=== PATIENT | female | born 1990 | race Caucasian/White ===

== ENCOUNTER 2023-04-08 17:37 | Inpatient (IN) | payer BC, OTHER ==
[2023-04-08 18:30] LABS: Appearance,Urine Clear (Clear); Bilirubin,Urine Negative (Negative); Blood,Urine Negative (Negative); Color,Urine Colorless; Glucose,Urine (UA) Negative (Negative); Ketones,Urine Negative (Negative); Leukocyte Esterase,Urine Negative (Negative); Nitrite,Urine Negative (Negative); PH, Urine 5.5 (5.0-8.0); Protein,Urine Negative (Negative); Specific Gravity,Urine 1.005 (1.001-1.035); Urobilinogen,Urine <2.0 mg/dL (<2.0)
[2023-04-08 20:10] LABS: Basophils % (A) 0 %; Eosinophils # (A) 0.1 k/uL (0-0.7); Eosinophils % (A) 1 %; HCT 39.7 % (34.0-46.0); HGB 13.1 gm/dL (11.4-16.0); Lymphocytes # (A) 2.2 k/uL (1.0-4.8); Lymphocytes % (A) 20 %; MCH 30.8 pg (25.0-35.0); MCHC 33.1 g/dL (31.0-37.0); MCV 93.1 fL (80.0-100.0); Mean Platelet Volume 7.6; Monocytes # (A) 0.5 k/uL (0-1.0); Monocytes % (A) 5 %; Neutrophils # (A) 7.8 k/uL (1.3-7.7); Neutrophils % (A) 73 %; Platelet Count 212 k/uL (150-450); RBC 4.26 m/uL (3.80-5.40); RDW 12.4 % (11.5-15.5); WBC 10.7 k/uL (3.8-10.6)
[2023-04-08 20:22] LABS: ALT 34 U/L (4-34); AST 41 U/L (14-36); African American GFR (CKD) >90 (>60 ml/min/1.73 sqM); Albumin 4.4 g/dL (3.5-5.0); Alkaline Phosphatase 120 U/L (38-126); Anion Gap 12 mmol/L; Blood Urea Nitrogen 10 mg/dL (7-17); Calcium 8.7 mg/dL (8.4-10.2); Carbon Dioxide 21 mmol/L (22-30); Chloride 105 mmol/L (98-107); Glucose 105 mg/dL (74-99); Non-African American GFR(CKD) >90 (>60 ml/min/1.73 sqM); Potassium 3.7 mmol/L (3.5-5.1); Sodium 138 mmol/L (137-145); Total Bilirubin 0.4 mg/dL (0.2-1.3); Total Protein 7.2 g/dL (6.3-8.2)
--- NOTE | 2023-04-08 21:05 | ED ---
General Adult HPI - General Chief complaint: Abdominal Pain Stated complaint: LRQ pain sent from urgent care Time Seen by Provider: 04/08/23 19:53 Source: patient Mode of arrival: ambulatory Limitations: no limitations - History of Present Illness Initial comments: Dictation was produced using [employer] dictation software. please excuse any grammatical, word or spelling errors. Chief Complaint: 32-year-old female presents emergency Department right lower quadrant abdominal pain History of Present Illness: Patient 32-year-old female presents to emergency room for right lower quadrant abdominal pain. Patient was told to come to the emergency department by primary care doctor. She's been having this pain for 2 days. States that it's worse in the right lower quadrant. Associated with nausea vomiting. No diarrhea. No fever. Patient has a history of abdominal surgery. The ROS documented in this emergency department record has been reviewed and confirmed by me. Those systems with pertinent positive or negative responses have been documented in the HPI. All other systems are other negative and/or noncontributory. - Related Data Home Medications Medication Instructions Recorded Confirmed Amitriptyline HCl [Elavil] 10 mg PO HS 04/08/23 04/08/23 Allergies Allergy/AdvReac Type Severity Reaction Status Date / Time No Known Allergies Allergy Verified 04/08/23 17:56 Review of Systems ROS Statement: Those systems with pertinent positive or pertinent negative responses have been documented in the HPI. ROS Other: All systems not noted in ROS Statement are negative. Past Medical History Past Medical History: No Reported History History of Any Multi-Drug Resistant Organisms: None Reported Past Surgical History: No Surgical Hx Reported Past Psychological History: Depression Smoking Status: Never smoker Past Alcohol Use History: None Reported Past Drug Use History: None Reported General Exam - General Exam Comments Initial Comments: PHYSICAL EXAM: General Impression: Alert and oriented x3, not in acute distress HEENT: Normocephalic atraumatic, extra-ocular movements intact, pupils equal and reactive to light bilaterally, mucous membranes moist. Cardiovascular: Heart regular rate and rhythm Chest: Able to complete full sentences, no retractions, no tachypnea Abdomen: abdomen soft, pain at McBurney's point, positive rebound, pain in the right side with palpation to the left, non-distended, no organomegaly Musculoskeletal: Pulses present and equal in all extremities, no peripheral edema Motor: no focal deficits noted Neurological: CN II-XII grossly intact, no focal motor or sensory deficits noted Skin: Intact with no visualized rashes Psych: Normal affect and mood Limitations: no limitations Course Vital Signs 04/08/23 17:54 Temperature 98 F Pulse Rate 94 Respiratory 16 Rate Blood Pressure 119/69 O2 Sat by Pulse 97 Oximetry Medical Decision Making - Medical Decision Making Was pt. sent in by a medical professional or institution (, ELLIE, DRUG AND ALCOHOL COUNSELLOR, urgent care, hospital, or [facility]...) When possible be specific @ -No Did you speak to anyone other than the patient for history (EMS, parent, family, police, friend...)? What history was obtained from this source @ -No Did you review nursing and triage notes (agree or disagree)? Why? @ -I reviewed and agree with nursing and triage notes Were old charts reviewed (outside hosp., previous admission, EMS record, old EKG, old radiological studies, urgent care reports/EKG's, [facility] records)? Report findings @ -No old charts were reviewed Differential Diagnosis (chest pain, altered mental status, abdominal pain women, abdominal pain men, vaginal bleeding, musculoskeletal, weakness, fever, dys pnea, syncope, headache, dizziness, GI bleed, back pain, seizure, CVA, palpatations, mental health)? @ -Differential abdominal pain women EKG interpreted by me (3pts min.). @ -None done X-rays interpreted by me (1pt min.). @ -None done CT interpreted by me (1pt min.). @ -Inflammation in the right lower quadrant concerning for acute appendicitis versus Cecitis U/S interpreted by me (1pt. min.). @ -None done What testing was considered but not performed or refused? (CT, X-rays, U/S, labs)? Why? @ -None What meds were considered but not given or refused? Why? @ -None Did you discuss the management of the patient with other professionals (professionals i.e. ELLIE Moore, DRUG AND ALCOHOL COUNSELLOR, lab, RT, psych nurse, high school social studies teacher, certified medication technician, teacher, air defense artillery officer, correctional case manager)? Give summary @Discussed with Dr. Zavala for admission. He request the patient be started antibiotics with no immediate plans for surgery he will assess patient in the morning tomorrow Was smoking cessation discussed for >3mins.? @ -No Was critical care preformed (if so, how long)? @ -No Were there social determinants of health that impacted care today? How? (Homelessness, low income, unemployed, alcoholism, drug addiction, transportation, low edu. Level, literacy, decrease access to med. care, nursing home, rehab)? @ -No Was there de-escalation of care discussed even if they declined (Discuss DNR or withdrawal of care, Hospice)? DNR status @ -No What co-morbidities impacted this encounter? (DM, HTN, Smoking, COPD, CAD, Cancer, CVA, ARF, Chemo, Hep., AIDS, mental health diagnosis, sleep apnea, morbid obesity)? @ -None Was patient admitted / discharged? Hospital course, mention meds given and route, prescriptions, significant lab abnormalities, going to OR and other pertinent info. @ -32-year-old female presents to the emergency department for right lower quadrant pain for 2 days. Vital signs stable. No significant leukocytosis. Labs unremarkable. CT concerning for acute appendicitis. Started antibiotics will be admitted to general surgery. Undiagnosed new problem with uncertain prognosis? @ -No Drug Therapy requiring intensive monitoring for toxicity (Heparin, Nitro, Insulin, Cardizem)? @ -No Were any procedures done? @ -No Diagnosis/symptom? Acute, or Chronic, or Acute on Chronic? Uncomplicated (without systemic symptoms) or Complicated (systemic symptoms)? @ -Acute appendicitis Side effects of treatment? @ -No Exacerbation, Progression, or Severe Exacerbation? @ -No Poses a threat to life or bodily function? How? (Chest pain, [place], [place], pneumonia, PE, COPD, DKA, ARF, appy, cholecystitis, CVA, Diverticulitis, Homicidal, Suicidal, threat to staff... and all critical care pts) @ -yes - Lab Data Result diagrams: 04/08/23 20:54 04/08/23 20:54 Lab Results 04/08/23 04/08/23 04/08/23 Range/Units 18:00 18:00 19:57 WBC 10.7 H (3.8-10.6) k/uL RBC 4.26 (3.80-5.40) m/uL Hgb 13.1 (11.4-16.0) gm/dL Hct 39.7 (34.0-46.0) % MCV 93.1 (80.0-100.0) fL MCH 30.8 (25.0-35.0) pg MCHC 33.1 (31.0-37.0) g/dL RDW 12.4 (11.5-15.5) % Plt Count 212 (150-450) k/uL MPV 7.6 Neutrophils % 73 % Lymphocytes % 20 % Monocytes % 5 % Eosinophils % 1 % Basophils % 0 % Neutrophils # 7.8 H (1.3-7.7) k/uL Lymphocytes # 2.2 (1.0-4.8) k/uL Monocytes # 0.5 (0-1.0) k/uL Eosinophils # 0.1 (0-0.7) k/uL Basophils # 0.0 (0-0.2) k/uL PT (9.0-12.0) sec INR (<1.2) APTT (22.0-30.0) sec Sodium (137-145) mmol/L Potassium (3.5-5.1) mmol/L Chloride (98-107) mmol/L Carbon Dioxide (22-30) mmol/L Anion Gap mmol/L BUN (7-17) mg/dL Creatinine (0.52-1.04) mg/dL Est GFR (CKD-EPI)AfAm (>60 ml/min/1.73 sqM) Est GFR (CKD-EPI)NonAf (>60 ml/min/1.73 sqM) Glucose (74-99) mg/dL Calcium (8.4-10.2) mg/dL Total Bilirubin (0.2-1.3) mg/dL AST (14-36) U/L ALT (4-34) U/L Alkaline Phosphatase (38-126) U/L Total Protein (6.3-8.2) g/dL Albumin (3.5-5.0) g/dL Urine Color Colorless Urine Appearance Clear (Clear) Urine pH 5.5 (5.0-8.0) Ur Specific [place] 1.005 (1.001-1.035) Urine Protein Negative (Negative) Urine Glucose (UA) Negative (Negative) Urine Ketones Negative (Negative) Urine Blood Negative (Negative) Urine Nitrite Negative (Negative) Urine Bilirubin Negative (Negative) Urine Urobilinogen <2.0 (<2.0) mg/dL Ur Leukocyte Esterase Negative (Negative) Urine HCG, Qual Not Detected (Not Detectd) 04/08/23 04/08/23 04/08/23 Range/Units 19:57 20:54 20:54 WBC 10.1 (3.8-10.6) k/uL RBC 4.09 (3.80-5.40) m/uL Hgb 12.7 (11.4-16.0) gm/dL Hct 38.1 (34.0-46.0) % MCV 93.3 (80.0-100.0) fL MCH 31.2 (25.0-35.0) pg MCHC 33.4 (31.0-37.0) g/dL RDW 12.4 (11.5-15.5) % Plt Count 209 (150-450) k/uL MPV 7.5 Neutrophils % 72 % Lymphocytes % 21 % Monocytes % 5 % Eosinophils % 1 % Basophils % 0 % Neutrophils # 7.3 (1.3-7.7) k/uL Lymphocytes # 2.1 (1.0-4.8) k/uL Monocytes # 0.5 (0-1.0) k/uL Eosinophils # 0.1 (0-0.7) k/uL Basophils # 0.0 (0-0.2) k/uL PT 9.6 (9.0-12.0) sec INR 0.9 (<1.2) APTT 24.4 (22.0-30.0) sec Sodium 138 (137-145) mmol/L Potassium 3.7 (3.5-5.1) mmol/L Chloride 105 (98-107) mmol/L Carbon Dioxide 21 L (22-30) mmol/L Anion Gap 12 mmol/L BUN 10 (7-17) mg/dL Creatinine 0.46 L (0.52-1.04) mg/dL Est GFR (CKD-EPI)AfAm >90 (>60 ml/min/1.73 sqM) Est GFR (CKD-EPI)NonAf >90 (>60 ml/min/1.73 sqM) Glucose 105 H (74-99) mg/dL Calcium 8.7 (8.4-10.2) mg/dL Total Bilirubin 0.4 (0.2-1.3) mg/dL AST 41 H (14-36) U/L ALT 34 (4-34) U/L Alkaline Phosphatase 120 (38-126) U/L Total Protein 7.2 (6.3-8.2) g/dL Albumin 4.4 (3.5-5.0) g/dL Urine Color Urine Appearance (Clear) Urine pH (5.0-8.0) Ur Specific [place] (1.001-1.035) Urine Protein (Negative) Urine Glucose (UA) (Negative) Urine Ketones (Negative) Urine Blood (Negative) Urine Nitrite (Negative) Urine Bilirubin (Negative) Urine Urobilinogen (<2.0) mg/dL Ur Leukocyte Esterase (Negative) Urine HCG, Qual (Not Detectd) 04/08/23 Range/Units 20:54 WBC (3.8-10.6) k/uL RBC (3.80-5.40) m/uL Hgb (11.4-16.0) gm/dL Hct (34.0-46.0) % MCV (80.0-100.0) fL MCH (25.0-35.0) pg MCHC (31.0-37.0) g/dL RDW (11.5-15.5) % Plt Count (150-450) k/uL MPV Neutrophils % % Lymphocytes % % Monocytes % % Eosinophils % % Basophils % % Neutrophils # (1.3-7.7) k/uL Lymphocytes # (1.0-4.8) k/uL Monocytes # (0-1.0) k/uL Eosinophils # (0-0.7) k/uL Basophils # (0-0.2) k/uL PT (9.0-12.0) sec INR (<1.2) APTT (22.0-30.0) sec Sodium 139 (137-145) mmol/L Potassium 3.5 (3.5-5.1) mmol/L Chloride 104 (98-107) mmol/L Carbon Dioxide 23 (22-30) mmol/L Anion Gap 12 mmol/L BUN 9 (7-17) mg/dL Creatinine 0.52 (0.52-1.04) mg/dL Est GFR (CKD-EPI)AfAm >90 (>60 ml/min/1.73 sqM) Est GFR (CKD-EPI)NonAf >90 (>60 ml/min/1.73 sqM) Glucose 96 (74-99) mg/dL Calcium 8.8 (8.4-10.2) mg/dL Total Bilirubin (0.2-1.3) mg/dL AST (14-36) U/L ALT (4-34) U/L Alkaline Phosphatase (38-126) U/L Total Protein (6.3-8.2) g/dL Albumin (3.5-5.0) g/dL Urine Color Urine Appearance (Clear) Urine pH (5.0-8.0) Ur Specific [place] (1.001-1.035) Urine Protein (Negative) Urine Glucose (UA) (Negative) Urine Ketones (Negative) Urine Blood (Negative) Urine Nitrite (Negative) Urine Bilirubin (Negative) Urine Urobilinogen (<2.0) mg/dL Ur Leukocyte Esterase (Negative) Urine HCG, Qual (Not Detectd) Disposition Clinical Impression: Appendicitis Disposition: [facility] Referrals: Vini Fall MD [Primary Care Provider] - 1-2 days Decision Time: 22:26
--- NOTE | 2023-04-08 21:37 | CT ---
EXAMINATION TYPE: CT abdomen pelvis w con DATE OF EXAM: 04/08/2023 COMPARISON: NONE HISTORY: 32-year-old female RLQ abdominal pain TECHNIQUE: Contiguous axial scanning of the abdomen and pelvis following administration of 100 ml Iso mario 300 IV contrast. Delayed images through the kidneys and coronal/sagittal reconstructions perform ed. CT DLP: 714.7 mGycm Automated exposure control for dose reduction was used. FINDINGS: Heart normal size without pericardial effusion. Lung bases clear without pleural effusion. No focal liver lesion or biliary ductal dilatation. Portal venous system is patent. Gallbladder, adrenal glands, kidneys, spleen, and pancreas within normal limits. Prominent fluid-filled small bowel loops throughout the abdomen and pelvis. There is moderate to severe cecal wall thickening and contiguous thickening of the appendix up to 1.1 cm. Suspected reactive right lower quadrant mesenteric lymphadenopathy measuring up to 1.5 cm. No dilated small bowel or free air. Bladder is urine distended. Uterus is retroverted. Both ovaries are visualized. There is a 1.8 cm dom inant follicle or functional cyst in the left ovary. Also moderate cul-de-sac free fluid likely physi ologic. No pelvic lymphadenopathy. Bones: Osseous destructive process. IMPRESSION: 1. MODERATE TO SEVERE COLITIS CENTERED AT THE CECUM WITH CONTIGUOUS INFLAMMATION EXTENDING INTO THE A PPENDIX. UNCLEAR IF THIS REPRESENTS A PRIMARY INFECTIOUS OR INFLAMMATORY CECITIS WITH CONTIGUOUS INFL AMMATION OF THE APPENDIX VERSUS ACUTE APPENDICITIS WITH INFLAMMATION EXTENDING TO INVOLVE THE CECUM. THE FORMER IS SOMEWHAT FAVORED. 2. ADDITIONAL SCATTERED FLUID-FILLED SMALL BOWEL LOOPS MID TO LOWER ABDOMEN AND PELVIS COULD REPRESEN T A SECONDARY ILEUS OR CONCURRENT ENTERITIS. 3. SOME REACTIVE RIGHT LOWER QUADRANT MESENTERIC LYMPHADENOPATHY MEASURING UP TO 1.5 CM. 4. MILD TO MODERATE CUL-DE-SAC FREE FLUID LIKELY PHYSIOLOGIC. IT COULD ALSO BE REACTIVE TO THE ABOVE INFLAMMATION. NO ABSCESS OR FREE AIR.
[2023-04-08 21:41] LABS: Basophils % (A) 0 %; Eosinophils # (A) 0.1 k/uL (0-0.7); Eosinophils % (A) 1 %; HCT 38.1 % (34.0-46.0); HGB 12.7 gm/dL (11.4-16.0); Lymphocytes # (A) 2.1 k/uL (1.0-4.8); Lymphocytes % (A) 21 %; MCH 31.2 pg (25.0-35.0); MCHC 33.4 g/dL (31.0-37.0); MCV 93.3 fL (80.0-100.0); Mean Platelet Volume 7.5; Monocytes # (A) 0.5 k/uL (0-1.0); Monocytes % (A) 5 %; Neutrophils # (A) 7.3 k/uL (1.3-7.7); Neutrophils % (A) 72 %; Platelet Count 209 k/uL (150-450); RBC 4.09 m/uL (3.80-5.40); RDW 12.4 % (11.5-15.5); WBC 10.1 k/uL (3.8-10.6)
[2023-04-08 21:58] LABS: INR 0.9 (<1.2); Partial Thromboplastin Time 24.4 sec (22.0-30.0); Prothrombin Time 9.6 sec (9.0-12.0)
[2023-04-08 22:15] LABS: African American GFR (CKD) >90 (>60 ml/min/1.73 sqM); Anion Gap 12 mmol/L; Blood Urea Nitrogen 9 mg/dL (7-17); Calcium 8.8 mg/dL (8.4-10.2); Carbon Dioxide 23 mmol/L (22-30); Chloride 104 mmol/L (98-107); Glucose 96 mg/dL (74-99); Non-African American GFR(CKD) >90 (>60 ml/min/1.73 sqM); Potassium 3.5 mmol/L (3.5-5.1); Sodium 139 mmol/L (137-145)
[2023-04-08] MEDS ORDERED: ACETAMINOPHEN TAB 325 MG TAB PO PRN (22:30)
[2023-04-08] MEDS ORDERED: ONDANSETRON 4 MG/2 ML VIAL IVP PRN (22:30)
[2023-04-08] MEDS ORDERED: NALOXONE 0.4 MG/ML 1 ML VIAL IV PRN (22:30)
[2023-04-08] MEDS: MORPHINE SULFATE 4 MG/ML SYRINGE IV PRN (23:00)
[2023-04-09] MEDS: PIPERACILLIN-TAZOBACTAM 3.375 GM in SODIUM CHLORIDE 0.9% 100 ML IVPB SCH ×4 (00:34→23:29)
[2023-04-09] MEDS: SODIUM CHLORIDE 0.9% 1,000 ML IV SCH ×4 (00:34→21:16)
[2023-04-09] MEDS: MORPHINE SULFATE 4 MG/ML SYRINGE IV PRN ×3 (04:21→19:49)
--- NOTE | 2023-04-09 16:20 | P.GSHP ---
History of Present Illness H&P Date: 04/09/23 CHIEF COMPLAINT: Abdominal pain HISTORY OF PRESENT ILLNESS: This is a 32-year-old female who presented to the hospital with complaints of right lower quadrant abdominal pain. Pain started suddenly on Saturday morning. She reports that the pain moves the right lower quadrant up to the umbilicus. She was initially rating pain 10 out of 10. With pain medication pain comes down to 5 out of 10. She reports her bowel to been normal. She denies any nausea or vomiting. Denies any fever chills or sweats. Prior surgical history does include a . She had a computed tomography scan that had shown moderate to severe colitis at the cecum with inflammation extending into the appendix. Unclear if this represents a primary infectious or inflammatory cystitis with contiguous inflammation of the appendix versus an acute appendicitis. Patient started on IV antibiotics and has been admitted to surgical service. PAST MEDICAL HISTORY: See below PAST SURGICAL HISTORY: See below MEDICATIONS: See below ALLERGIES: See below SOCIAL HISTORY: No illicit drug use. REVIEW OF SYSTEMS: CONSTITUTIONAL: Denies fever or chills. HEENT: Denies blurred vision, vision changes, or eye pain. Denies hemoptysis CARDIOVASCULAR: Denies chest pain or pressure. RESPIRATORY: No shortness of breath. GASTROINTESTINAL: See HPI for pertinent findings HEMATOLOGIC: Denies bleeding disorders. GENITOURINARY: Denies any blood in urine or increased urinary frequency. SKIN: Denies pruitis. Denies rash. PHYSICAL EXAM: VITAL SIGNS: Reviewed GENERAL: Well-developed in no acute distress. HEENT: No sclera icterus. Extraocular movements grossly intact. Moist buccal mucosa. Head is atraumatic, normocephalic. No nasal drainage. ABDOMEN: Soft. Nondistended. Tenderness with palpation to right lower quadrant. NEUROLOGIC: Alert and oriented. Cranial nerves II through XII grossly intact. LABORATORY DATA: WBC is 10.1 Hgb 12.7 platelets 209 Sodium is 139 potassium 3.5 creatinine 0.52 Urinalysis negative for infection Urine hCG not detected IMAGING: Computed tomography scan abdomen and pelvis moderate to severe colitis centered at the cecum with information extending into the appendix. Unclear of this represents a primary infectious or inflammatory cystitis with current US inflammation of the appendix versus acute appendicitis with inflammation extending to the cecum. Additional scattered fluid-filled small bowel loops mid to lower abdomen and pelvis could represent a secondary ileus or concur enteritis. Some reactive right lower quadrant mesenteric lymphadenopathy measuring up to 1.5 cm. Mild to moderate cul-de-sac fluid likely physiologic. It could also be reactive to both inflammation. No abscess or free air. ASSESSMENT: 1. Possible acute appendicitis versus cecitis 2. Moderate to severe colitis at the cecum with inflammation extending into the appendix. Unclear if this represents a primary infectious or inflammatory cystitis with inflammation of the appendix versus an acute appendicitis with inflammation extending into the cecum noted on computed tomography scan PLAN: -Start clear liquid diet -Patient scheduled tentatively for laparoscopic appendectomy tomorrow with Dr. eddy -Nothing by mouth after midnight -Continue IV antibiotics -Continue supportive care Physician Acoustical Carpenter note has been reviewed by physician. Signing provider agrees with the documented findings, assessment, and plan of care. Past Medical History Past Medical History: No Reported History History of Any Multi-Drug Resistant Organisms: None Reported Past Surgical History: Section Past Anesthesia/Blood Transfusion Reactions: No Reported Reaction Smoking Status: Never smoker Past Alcohol Use History: None Reported Past Drug Use History: None Reported Medications and Allergies Home Medications Medication Instructions Recorded Confirmed Type Amitriptyline HCl [Elavil] 10 mg PO HS 04/08/23 04/08/23 History Allergies Allergy/AdvReac Type Severity Reaction Status Date / Time No Known Allergies Allergy Verified 04/08/23 17:56 Surgical - Exam Vital Signs Temp Pulse Resp BP Pulse Ox 98 F 94 16 119/69 97 04/08/23 17:54 04/08/23 17:54 04/08/23 17:54 04/08/23 17:54 04/08/23 17:54 Results - Labs 04/08/23 20:54 04/08/23 20:54 Abnormal Lab Results - Last 24 Hours (Table) 04/08/23 04/08/23 Range/Units 19:57 19:57 WBC 10.7 H (3.8-10.6) k/uL Neutrophils # 7.8 H (1.3-7.7) k/uL Carbon Dioxide 21 L (22-30) mmol/L Creatinine 0.46 L (0.52-1.04) mg/dL Glucose 105 H (74-99) mg/dL AST 41 H (14-36) U/L Diabetes panel 04/08/23 04/08/23 Range/Units 19:57 20:54 Sodium 138 139 (137-145) mmol/L Potassium 3.7 3.5 (3.5-5.1) mmol/L Chloride 105 104 (98-107) mmol/L Carbon Dioxide 21 L 23 (22-30) mmol/L BUN 10 9 (7-17) mg/dL Creatinine 0.46 L 0.52 (0.52-1.04) mg/dL Glucose 105 H 96 (74-99) mg/dL Calcium 8.7 8.8 (8.4-10.2) mg/dL AST 41 H (14-36) U/L ALT 34 (4-34) U/L Alkaline Phosphatase 120 (38-126) U/L Total Protein 7.2 (6.3-8.2) g/dL Albumin 4.4 (3.5-5.0) g/dL Calcium panel 04/08/23 04/08/23 Range/Units 19:57 20:54 Calcium 8.7 8.8 (8.4-10.2) mg/dL Albumin 4.4 (3.5-5.0) g/dL Pituitary panel 04/08/23 04/08/23 Range/Units 19:57 20:54 Sodium 138 139 (137-145) mmol/L Potassium 3.7 3.5 (3.5-5.1) mmol/L Chloride 105 104 (98-107) mmol/L Carbon Dioxide 21 L 23 (22-30) mmol/L BUN 10 9 (7-17) mg/dL Creatinine 0.46 L 0.52 (0.52-1.04) mg/dL Glucose 105 H 96 (74-99) mg/dL Calcium 8.7 8.8 (8.4-10.2) mg/dL Adrenal panel 04/08/23 04/08/23 Range/Units 19:57 20:54 Sodium 138 139 (137-145) mmol/L Potassium 3.7 3.5 (3.5-5.1) mmol/L Chloride 105 104 (98-107) mmol/L Carbon Dioxide 21 L 23 (22-30) mmol/L BUN 10 9 (7-17) mg/dL Creatinine 0.46 L 0.52 (0.52-1.04) mg/dL Glucose 105 H 96 (74-99) mg/dL Calcium 8.7 8.8 (8.4-10.2) mg/dL Total Bilirubin 0.4 (0.2-1.3) mg/dL AST 41 H (14-36) U/L ALT 34 (4-34) U/L Alkaline Phosphatase 120 (38-126) U/L Total Protein 7.2 (6.3-8.2) g/dL Albumin 4.4 (3.5-5.0) g/dL
--- NOTE | 2023-04-09 16:53 | P.CONS ---
History of Present Illness - Reason for Consult Consult date: 04/09/23 Medical Management Requesting physician: Donato Zavala - History of Present Illness History of Presenting Illness: Patient is a very pleasant 32-year-old female with a past medical history of depression.. She presented to the emergency department on 04/08/23 secondary to a chief complaint of right lower quadrant abdominal pain 2 days accompanied by nausea and vomiting. Patient underwent full evaluation in the emergency department. Labs completed and reviewed. CBC revealing leukocytosis with WBC count of 10.7 with left shift with neutrophils of 7.8. BMP showing hypocarbia with bicarb of 21. Liver profile showing slightly elevated AST of 41. U rinalysis was negative for blood or infection and urine hCG was negative for . Patient underwent CT abdomen and pelvis with contrast and radiology report reviewed stating moderate to severe colitis centered at the sacrum with contiguous inflammation extending into the appendix, additional scattered fluid- filled small bowel loops mid to lower abdomen possibly representing a secondary ileus or concurrent enteritis, and reactive right lower quadrant mesenteric lymphadenopathy measuring up to 1.5 cm, and mild to moderate cul-de-sac free fluid likely physiologic. Patient was admitted to general surgery team and we were consulted for medical management throughout hospitalization. Review of systems: Pertinent positives and negatives as discussed in HPI, a complete review of systems was performed and all other systems are negative. Physical exam: Patient was seen and fully evaluated at bedside. Patient with no further episodes of nausea or vomiting, she does report continued right lower quadrant abdominal pain. Vital signs reviewed and stable. General: Nontoxic, no distress and appears stated age. Derm: Skin warm and dry, normal coloration for ethnicity. Head: Atraumatic, normocephalic and symmetric. Eyes: EOMs intact, no lid lag, and anicteric sclera Mouth: no lip lesions, mucus membranes moist Cardiovascular: regular rate and rhythm with normal S1S2, no murmur, positive posterior tibial pulses bilaterally, and cap refill < 2 seconds. Lungs: Respirations even, regular, and unlabored on room air. Lungs CTA bilaterally, no rhonchi, no rales, no wheezing, and no accessory muscle usage. Abdominal: soft, tenderness reported upon palpation to right lower quadrant and McBurney's point, patient also with positive Rovsing sign with reports of referred pain to right lower quadrant upon palpation of left lower quadrant. Ext: ROM intact. No gross muscle atrophy, no edema, no contractures Neuro: Speech clear, face symmetrical and CN II-XII grossly intact with no noted focal neuro deficits Psych: Alert and oriented to person, place, time, and situation. Appropriate and pleasant affect. Assessment and Plan of Care: Moderate to severe colitis Intractable right lower quadrant abdominal pain accompanied by nausea and vomiting, concerns of Acute appendicitis versus Cecitis Leukocytosis Elevated liver enzymes -Vital signs reviewed and stable with blood pressure 102/66, heart rate 87, respiratory rate 17, and SpO2 of 99% on room air. Patient remains afebrile with temp of 98.5F. -Labs completed and reviewed. CBC revealing leukocytosis with WBC count of 10.7 with left shift with neutrophils of 7.8. BMP showing hypocarbia with bicarb of 21. Liver profile showing slightly elevated AST of 41. -Urinalysis was negative for blood or infection and urine hCG was negative for . -CT abdomen and pelvis with contrast was completed and radiology report reviewed stating moderate to severe colitis centered at the sacrum with contiguous inflammation extending into the appendix, additional scattered fluid-filled small bowel loops mid to lower abdomen possibly representing a secondary ileus or concurrent enteritis, and reactive right lower quadrant mesenteric lymphadenopathy measuring up to 1.5 cm, and mild to moderate cul-de-sac free fluid likely physiologic. -Discussed plan of care with general surgery PA, stating patient is tentatively scheduled to undergo laparoscopic appendectomy tomorrow with Dr. Zavala. -Recommend continuation of Zosyn 3.375 g every 8 hours. -Clear liquid diet as recommended by general surgery team and patient to be nothing by mouth after midnight. -Continue with IV fluid hydration with 0.9% normal saline at 130 mL's per hour. -Order placed for repeat CBC and CMP tomorrow morning and will follow up on results and place additional orders as needed. Depression -Reviewed home medication regimen and reordered patient's amitriptyline 10 mg nightly. Thank you for allowing us to participate in the care of this pleasant patient. Do not hesitate to contact us with questions. Someone can be reached from the [facility] hospitalist group all hours of the day at [phone] or via perfect serve. Patient was seen independently by Nurse Practitioner. This document was prepared using [employer] dictation software. Please allow for errors in rental car porter while rare they do occur. Juan Farrell NP rendered care for this patient independently, reviewed the findings and plan as documented in the note above. I did not physically speak with or examine the patient on this date. Past Medical History Past Medical History: No Reported History History of Any Multi-Drug Resistant Organisms: None Reported Past Surgical History: Section Past Anesthesia/Blood Transfusion Reactions: No Reported Reaction Smoking Status: Never smoker Past Alcohol Use History: None Reported Past Drug Use History: None Reported Medications and Allergies Home Medications Medication Instructions Recorded Confirmed Type Amitriptyline HCl [Elavil] 10 mg PO HS 04/08/23 04/08/23 History HYDROcodone/APAP 5-325MG [[place] 1 tab PO Q6HR PRN 3 Days #12 tab 04/11/23 Rx 5-325] Allergies Allergy/AdvReac Type Severity Reaction Status Date / Time No Known Allergies Allergy Verified 04/08/23 17:56 Physical Exam Vitals: Vital Signs Temp Pulse Pulse Resp BP BP Pulse Ox 04/09/23 07:35 98.5 F 87 17 102/66 99 04/09/23 03:24 16 04/09/23 01:23 98.1 F 77 16 104/67 97 04/08/23 22:54 70 15 125/80 04/08/23 22:24 97.7 F 94 16 119/82 96 04/08/23 17:54 98 F 94 16 119/69 97 Intake and Output 04/08/23 04/09/23 04/09/23 22:59 06:59 14:59 Other: Voiding Method Toilet # Voids 1 Weight 66.678 kg Results CBC & Chem 7: 04/10/23 05:42 04/10/23 05:42 Labs: Abnormal Lab Results - Last 24 Hours (Table) 04/08/23 04/08/23 Range/Units 19:57 19:57 WBC 10.7 H (3.8-10.6) k/uL Neutrophils # 7.8 H (1.3-7.7) k/uL Carbon Dioxide 21 L (22-30) mmol/L Creatinine 0.46 L (0.52-1.04) mg/dL Glucose 105 H (74-99) mg/dL AST 41 H (14-36) U/L
[2023-04-09] MEDS: AMITRIPTYLINE HCL 10 MG TAB PO SCH (21:15)
[2023-04-10] MEDS: SODIUM CHLORIDE 0.9% 1,000 ML IV SCH ×2 (04:34→16:11)
[2023-04-10 05:58] LABS: HCT 31.9 % (34.0-46.0); HGB 10.4 gm/dL (11.4-16.0); MCH 30.9 pg (25.0-35.0); MCHC 32.4 g/dL (31.0-37.0); MCV 95.2 fL (80.0-100.0); Mean Platelet Volume 7.9; Platelet Count 143 k/uL (150-450); RBC 3.36 m/uL (3.80-5.40); RDW 12.4 % (11.5-15.5); WBC 4.4 k/uL (3.8-10.6)
[2023-04-10 06:22] LABS: ALT 23 U/L (4-34); AST 21 U/L (14-36); African American GFR (CKD) >90 (>60 ml/min/1.73 sqM); Albumin 2.9 g/dL (3.5-5.0); Albumin/Globulin Ratio 1.3; Alkaline Phosphatase 85 U/L (38-126); Anion Gap 6 mmol/L; Blood Urea Nitrogen 7 mg/dL (7-17); Calcium 7.8 mg/dL (8.4-10.2); Carbon Dioxide 22 mmol/L (22-30); Chloride 110 mmol/L (98-107); Globulin 2.2 g/dL; Glucose 80 mg/dL (74-99); Non-African American GFR(CKD) >90 (>60 ml/min/1.73 sqM); Potassium 3.9 mmol/L (3.5-5.1); Sodium 138 mmol/L (137-145); Total Bilirubin 0.4 mg/dL (0.2-1.3); Total Protein 5.1 g/dL (6.3-8.2)
[2023-04-10] MEDS: PIPERACILLIN-TAZOBACTAM 3.375 GM in SODIUM CHLORIDE 0.9% 100 ML IVPB SCH ×2 (08:58→16:10)
[2023-04-10] MEDS ORDERED: IV FLUID CONTINUATION 1,000 ML IV ONE (10:14)
[2023-04-10] MEDS ORDERED: HEPARIN SODIUM,PORCINE/PF 5,000 UNIT/0.5 ML SYRINGE SQ ONE (10:29)
[2023-04-10] MEDS ORDERED: DEXAMETHASONE SOD PHOSPHATE 4 MG/ML 1 ML VIAL IVP ONE (10:31)
[2023-04-10] MEDS ORDERED: ONDANSETRON 4 MG/2 ML VIAL IVP ONE (10:31)
[2023-04-10] MEDS ORDERED: HEPARIN SODIUM,PORCINE 5,000 UNIT/ML 1 ML VIAL SQ ONE (10:31)
[2023-04-10] MEDS ORDERED: MIDAZOLAM 2 MG/2 ML VIAL ONE (10:41)
[2023-04-10] MEDS ORDERED: PROPOFOL 10 MG/ML 20 ML VIAL IV ONE (10:41)
[2023-04-10] MEDS ORDERED: HYDROmorphone (PF) 1 MG/ML ONE (10:41)
[2023-04-10] MEDS ORDERED: NEOSTIGMINE 1 MG/ML 10 ML VIAL ONE (10:41)
[2023-04-10] MEDS ORDERED: fentaNYL (PF) 50 MCG/ML 2 ML AMP ONE (10:41)
[2023-04-10] MEDS ORDERED: LIDOCAINE 2% INJ 20 MG/ML (2 ML VIAL) ONE (10:41)
[2023-04-10] MEDS ORDERED: ROCURONIUM 10 MG/ML (5 ML VIAL) IV ONE (10:41)
[2023-04-10] MEDS ORDERED: GLYCOPYRROLATE 0.2 MG/ML 2 ML VIAL ONE (10:41)
[2023-04-10] MEDS ORDERED: SUCCINYLCHOLINE CHLORIDE 200 MG/10 ML VIAL IV ONE (10:41)
[2023-04-10] MEDS ORDERED: KETOROLAC 15 MG/ML 1 ML VIAL ONE (10:41)
[2023-04-10] MEDS ORDERED: BUPIVACAINE (PF) 0.25% 30 ML VIAL SQ ONE ×2 (11:03→11:08)
[2023-04-10] MEDS ORDERED: LACTATED RINGERS 1,000 ML IV ONE (11:27)
--- NOTE | 2023-04-10 11:39 | P.OP ---
Date of Procedure: 04/10/23 Preoperative Diagnosis: Acute appendicitis Postoperative Diagnosis: Acute appendicitis Procedure(s) Performed: Laparoscopic appendectomy Anesthesia: MAN Surgeon: Donato Zavala Estimated Blood Loss (ml): 5 Pathology: other (Appendix) Condition: stable Disposition: PACU Description of Procedure: The patient's placed on the operating table in the supine position. The patient received general anesthesia. The abdomen was prepped and draped in the usual sterile fashion. The skin was anesthetized 1% local Xylocaine at the trocar sites. Using an 11 blade the skin was incised at the umbilicus. The umbilicus was grasped with a [place] clamp and then a Veress needle was placed into the peritoneal cavity. Position of the Veress needle was confirmed with positive drop test. After adequate insufflation a 5 mm trocar was placed into the peritoneal cavity. The abdomen was further insufflated. And then the laparoscope was placed in the peritoneal cavity. Next a 5 mm trocar was placed in the midline suprapubic position. And then a 10 mm trocar was placed in the midline epigastric position. The patient was rotated with the right side up and in Trendelenburg. The appendix was visualized. The appendix appeared to be inflamed. The appendix was grasped and then using the Harmonic scissors the mesoappendix was divided. Using the laparoscopic BLAIR stapler. The base the appendix and transected with the black staple load. . And then the appendix was divided using Harmonic scissors. The appendix was placed into an Endo Catch and brought out through the 10 mm trocar site. The abdomen was irrigated. There is no bleeding seen. The trochars withdrawn. The skin was closed interrupted 3-0 Monocryl suture. Dermabond dressing was applied. Patient was sent to recovery room in stable condition.
[2023-04-10] MEDS ORDERED: HYDROmorphone 1 MG/ML 1 ML SYRINGE IVP PRN (11:40)
[2023-04-10] MEDS: MORPHINE SULFATE 4 MG/ML SYRINGE IV PRN ×2 (18:09→22:17)
--- NOTE | 2023-04-10 18:53 | P.PN ---
Subjective Progress Note Date: 04/10/23 Hospital course: Patient is a very pleasant 32-year-old female with a past medical history of depression.. She presented to the emergency department on 04/08/23 secondary to a chief complaint of right lower quadrant abdominal pain 2 days accompanied by nausea and vomiting. Patient underwent full evaluation in the emergency department. Labs completed and reviewed. CBC revealing leukocytosis with WBC count of 10.7 with left shift with neutrophils of 7.8. BMP showing hypocarbia with bicarb of 21. Liver profile showing slightly elevated AST of 41. Urinalysis was negative for blood or infection and urine hCG was negative for . Patient underwent CT abdomen and pelvis with contrast and radiology report reviewed stating moderate to severe colitis centered at the sacrum with contiguous inflammation extending into the appendix, additional scattered fluid- filled small bowel loops mid to lower abdomen possibly representing a secondary ileus or concurrent enteritis, and reactive right lower quadrant mesenteric lymphadenopathy measuring up to 1.5 cm, and mild to moderate cul-de-sac free fluid likely physiologic. Patient was admitted to general surgery team and we w ly consulted for medical management throughout hospitalization. Physical exam: Patient was seen and fully evaluated at bedside shortly after returning from postop. Patient reports significant improvement in abdominal pain and currently denies having any nausea or vomiting and tolerating clear liquid diet. Vital signs reviewed and stable. General: Nontoxic, no distress and appears stated age. Derm: Skin warm and dry, normal coloration for ethnicity. Head: Atraumatic, normocephalic and symmetric. Eyes: EOMs intact, no lid lag, and anicteric sclera Mouth: no lip lesions, mucus membranes moist Cardiovascular: regular rate and rhythm with normal S1S2, no murmur, positive posterior tibial pulses bilaterally, and cap refill < 2 seconds. Lungs: Respirations even, regular, and unlabored on room air. Lungs CTA bilaterally, no rhonchi, no rales, no wheezing, and no accessory muscle usage. Abdominal: soft, tenderness reported upon palpation to right lower quadrant and McBurney's point, patient also with positive Rovsing sign with reports of referred pain to right lower quadrant upon palpation of left lower quadrant. Ext: ROM intact. No gross muscle atrophy, no edema, no contractures Neuro: Speech clear, face symmetrical and CN II-XII grossly intact with no noted focal neuro deficits Psych: Alert and oriented to person, place, time, and situation. Appropriate and pleasant affect. Assessment and Plan of Care: Moderate to severe colitis Intractable right lower quadrant abdominal pain accompanied by nausea and vomiting, status post laparoscopic appendectomy Leukocytosis, resolved Elevated liver enzymes, resolved -Labs completed and reviewed. CBC showing resolution of leukocytosis with WBC count down to 4.4, normocytic anemia with hemoglobin of 10.4, and mild thromboc ytopenia with platelet count of 143. BMP revealing mild hyperchloremia with chloride of 110 and resolution of previously elevated AST decreasing from 41 down to 21. -Discussed plan of care with general surgery PA, patient underwent laparoscopic appendectomy today with Dr. Zavala and they are recommending continued overnight monitoring with likely discharge tomorrow morning. -Recommend continuation of Zosyn 3.375 g every 8 hours. Diet to be advanced as directed by general surgery team and fluids(0.9% normal saline at 130 mL per hour) may be discontinued once patient tolerating regular diet. Depression -Reviewed home medication regimen and reordered patient's amitriptyline 10 mg nightly. Thank you for allowing us to participate in the care of this pleasant patient. Do not hesitate to contact us with questions. Someone can be reached from the [facility] hospitalist group all hours of the day at [phone] or via [employer] serve. Patient was seen independently by Nurse Practitioner. This document was prepared using [employer] dictation software. Please allow for errors in scraper meat while rare they do occur. Objective - Vital Signs Vital signs: Vital Signs Temp 99.0 F 04/10/23 07:21 Pulse 72 04/10/23 07:21 Resp 16 04/10/23 07:21 BP 95/48 04/10/23 07:21 Pulse Ox 97 04/10/23 07:21 FiO2 Intake & Output 04/09/23 04/10/23 04/10/23 18:59 06:59 18:59 Intake Total 1760 Balance 1760 Intake: Intake, IV Titration 1760 Amount Piperacillin-Tazobactam 3 200 .375 gm In Sodium Chloride 0.9% 100 ml @ 25 mls/hr IVPB Q8HR [facility] Rx# :[id number] Sodium Chloride 0.9% 1, 1560 000 ml @ 130 mls/hr IV . Q7H42M [facility] Rx#:[id number] Other: Voiding Method Toilet Toilet # Voids 2 - Labs CBC & Chem 7: 04/10/23 05:42 04/10/23 05:42 Labs: Abnormal Lab Results - Last 24 Hours (Table) 04/10/23 04/10/23 Range/Units 05:42 05:42 RBC 3.36 L (3.80-5.40) m/uL Hgb 10.4 L (11.4-16.0) gm/dL Hct 31.9 L (34.0-46.0) % Plt Count 143 L (150-450) k/uL Chloride 110 H (98-107) mmol/L Calcium 7.8 L (8.4-10.2) mg/dL Total Protein 5.1 L (6.3-8.2) g/dL Albumin 2.9 L (3.5-5.0) g/dL
[2023-04-10] MEDS: AMITRIPTYLINE HCL 10 MG TAB PO SCH (20:38)
[2023-04-11] MEDS: PIPERACILLIN-TAZOBACTAM 3.375 GM in SODIUM CHLORIDE 0.9% 100 ML IVPB SCH ×2 (00:07→10:23)
[2023-04-11 00:43] VITALS: RESP 18; TEMP 98.8
[2023-04-11 07:26] VITALS: BP 97/61; PULSE 84
[2023-04-11] MEDS ORDERED: HYDROcodone/APAP 5-325MG 1 EACH TAB PO PRN (08:06)
[2023-04-11] MEDS ORDERED: ENOXAPARIN 40 MG/0.4 ML SYRINGE SQ SCH (09:00)
[2023-04-11] MEDS ORDERED: MIDAZOLAM 2 MG/2 ML VIAL IV PRN (10:20)
[2023-04-11] MEDS ORDERED: HYDROmorphone 0.5 MG/0.5 ML SYRINGE IVP PRN (10:20)
[2023-04-11] MEDS ORDERED: DEXAMETHASONE SOD PHOSPHATE 4 MG/ML 1 ML VIAL IV ONE (10:20)
[2023-04-11] MEDS ORDERED: LACTATED RINGERS 1,000 ML IV SCH (10:20)
--- NOTE | 2023-04-11 11:10 | P.DS ---
Providers Date of admission: 04/08/23 22:30 Expected date of discharge: 04/11/23 Attending physician: Donato Zavala Consults: 04/09/23 08:17 Consult Physician Routine Consulting Provider: Veronica Bob Consult Reason/Comments: medical management Do you want consulting provider notified?: Yes Primary care physician: Vini Barajas [facility] Course: Discharge diagnosis 1. Acute appendicitis Hospital course This is a 32-year-old female presented with right lower quadrant abdominal pain and was found to have evidence of acute appendicitis. She is status post laparoscopic appendectomy. Patient tolerated surgery well. She is afebrile. She has been up and ambulating. She is tolerating diet. She is having flatus. She denies difficulty urinating. She is stable for discharge. Incision sites clean dry and intact. Please refer to chart for any further details. Physician Slack Line Yarder note has been reviewed by physician. Signing provider agrees with the documented findings, assessment, and plan of care. Patient Condition at Discharge: Stable Plan - Discharge Summary New Discharge Prescriptions: New HYDROcodone/APAP 5-325MG [[place] 5-325] 1 tab PO Q6HR PRN 3 Days #12 tab PRN Reason: Pain Continue Amitriptyline HCl [Elavil] 10 mg PO HS Discharge Medication List Amitriptyline HCl [Elavil] 10 mg PO HS 04/08/23 [History] HYDROcodone/APAP 5-325MG [[place] 5-325] 1 tab PO Q6HR PRN 3 Days #12 tab 04/11/23 [Rx] Follow up Appointment(s)/Referral(s): Vini Fall MD [Primary Care Provider] - 1-2 days Donato Zavala MD [STAFF PHYSICIAN] - 1 Week Activity/Diet/Wound Care/Special Instructions: No driving while taking [place] No lifting over 10 pounds You may shower. No soaking or tub baths for 2 weeks Very light activity until you are reevaluated at your follow up appointment with your surgeon Discharge Disposition: HOME SELF-CARE
--- NOTE | 2023-04-11 11:42 | P.PN ---
Subjective Progress Note Date: 04/11/23 Hospital course: Patient is a very pleasant 32-year-old female with a past medical history of depression.. She presented to the emergency department on 04/08/23 secondary to a chief complaint of right lower quadrant abdominal pain 2 days accompanied by nausea and vomiting. Patient underwent full evaluation in the emergency department. Labs completed and reviewed. CBC revealing leukocytosis with WBC count of 10.7 with left shift with neutrophils of 7.8. BMP showing hypocarbia with bicarb of 21. Liver profile showing slightly elevated AST of 41. Urinalysis was negative for blood or infection and urine hCG was negative for . Patient underwent CT abdomen and pelvis with contrast and radiology report reviewed stating moderate to severe colitis centered at the sacrum with contiguous inflammation extending into the appendix, additional scattered fluid- filled small bowel loops mid to lower abdomen possibly representing a secondary ileus or concurrent enteritis, and reactive right lower quadrant mesenteric lymphadenopathy measuring up to 1.5 cm, and mild to moderate cul-de-sac free fluid likely physiologic. Patient was admitted to general surgery team and we w ere consulted for medical management throughout hospitalization. Patient underwent laparoscopic appendectomy on 04/10/23. Physical exam: Patient was seen and fully evaluated at bedside this morning. She is postoperative day 1 and appears to be doing well. Patient reports full resolution of previous reported right lower quadrant pain. She does report mild laparoscopic incisional pain/discomfort but ambulating without any difficulties and denies having any postoperative nausea or vomiting. Patient tolerating regular diet and denies any further complaints at this time. Vital signs reviewed and stable. General: Nontoxic, no distress and appears stated age. Derm: Skin warm and dry, normal coloration for ethnicity. Head: Atraumatic, normocephalic and symmetric. Eyes: EOMs intact, no lid lag, and anicteric sclera Mouth: no lip lesions, mucus membranes moist Cardiovascular: regular rate and rhythm with normal S1S2, no murmur, positive posterior tibial pulses bilaterally, and cap refill < 2 seconds. Lungs: Respirations even, regular, and unlabored on room air. Lungs CTA bilater ally, no rhonchi, no rales, no wheezing, and no accessory muscle usage. Abdominal: soft, tenderness reported upon palpation to right lower quadrant and McBurney's point, patient also with positive Rovsing sign with reports of referred pain to right lower quadrant upon palpation of left lower quadrant. Ext: ROM intact. No gross muscle atrophy, no edema, no contractures Neuro: Speech clear, face symmetrical and CN II-XII grossly intact with no noted focal neuro deficits Psych: Alert and oriented to person, place, time, and situation. Appropriate and pleasant affect. Assessment and Plan of Care: Acute postoperative blood loss anemia, expected finding Thrombocytopenia Moderate to severe colitis Intractable right lower quadrant abdominal pain accompanied by nausea and vomiting, status post laparoscopic appendectomy Leukocytosis, resolved Elevated liver enzymes, resolved -Morning labs reviewed and stable. CBC revealing postoperative blood loss anemia with Postoperative hemoglobin 10.4 from preoperative hemoglobin of 12.7 and mild postoperative thrombocytopenia with platelet count of 143 with preoperative platelet count of 209. BMP unremarkable. -Vital signs stable this morning with blood pressure 97/61, heart rate 84, respiratory rate 18, SpO2 of 98% on room air and temperature 98.8F. -Discussed plan of care with general surgery PA, planning for discharge this morning. -Patient medically optimized for discharge at this time with no further recommendations. Patient to follow up outpatient with PCP and general surgery as discussed. Depression -Reviewed home medication regimen and reordered patient's amitriptyline 10 mg nightly. Thank you for allowing us to participate in the care of this pleasant patient. Do not hesitate to contact us with questions. Someone can be reached from the [facility] hospitalist group all hours of the day at [phone] or via perfect serve. Patient was seen independently by Nurse Practitioner. This document was prepared using [employer] dictation software. Please allow for errors in guide setter while rare they do occur. Objective - Vital Signs Vital signs: Vital Signs Temp 98.8 F 04/11/23 07:25 Pulse 84 04/11/23 07:25 Resp 18 04/11/23 07:25 BP 97/61 04/11/23 07:25 Pulse Ox 98 04/11/23 07:25 FiO2 Intake & Output 04/10/23 04/11/23 04/11/23 18:59 06:59 18:59 Intake Total 1360 922 Output Total 10 Balance 1350 922 Weight 66.678 kg Intake: IV 1000 Intake, IV Titration 100 Amount Piperacillin-Tazobactam 3 100 .375 gm In Sodium Chloride 0.9% 100 ml @ 25 mls/hr IVPB Q8HR [facility] Rx# :[id number] Oral 360 822 Output: Estimated Blood Loss 10 Other: Voiding Method Toilet Toilet # Voids 4 2 - Labs CBC & Chem 7: 04/10/23 05:42 04/10/23 05:42
== END 2023-04-11 12:00 | disposition home or self-care (01) | DRG 342 ==
LOC: EC 17:37 → 5NMEDONC 22:30
PROVIDERS: ADMIT Surgery; ATTEND Surgery
PROC: 0DTJ4ZZ Resection of Appendix, Percutaneous Endoscopic Approach (ICD-10-PCS; principal; 2023-04-08)
DX: K35.80 Unspecified acute appendicitis (principal); D62 Acute posthemorrhagic anemia; K52.9 Noninfective gastroenteritis and colitis, unspecified; R59.1 Generalized enlarged lymph nodes; F32.A Depression, unspecified; D69.6 Thrombocytopenia, unspecified; R11.2 Nausea with vomiting, unspecified; R74.01 Elevation of levels of liver transaminase levels
CPT/HCPCS: 36415; 74177; 80048; 80053; 81003; 81025; 85025; 85027; 85610; 85730; 88304; 96374; 99285